=== PATIENT | male | born 1940 | race Caucasian/White ===

== ENCOUNTER → 2020-09-04 | Outpatient (CLI) | payer MEDICARE, MEDICAID | END | disposition home or self-care (01) | LOC: RAD 11:45 | PROVIDERS: ATTEND Internal Medicine Cardiovascular Disease | DX: I65.23 Occlusion and stenosis of bilateral carotid arteries (principal); I08.0 Rheumatic disorders of both mitral and aortic valves; I70.203 Unspecified atherosclerosis of native arteries of extremities, bilateral legs; I48.91 Unspecified atrial fibrillation; I95.9 Hypotension, unspecified; J90 Pleural effusion, not elsewhere classified; R59.0 Localized enlarged lymph nodes; J43.9 Emphysema, unspecified; I70.0 Atherosclerosis of aorta | CPT/HCPCS: 71250; 74176; 93880 ==

== ENCOUNTER 2020-09-22 14:15 | Inpatient (IN) | payer MEDICARE, MEDICAID ==
[~2020-09-22] VITALS: Ht 188 cm; Wt 145.0 kg
[~2020-09-22 14:15] MED LIST: ALLO100T64 PO; APIX2.5T PO; CILO100T PO; FURO40TA6 PO; GABA-827 PO; LATA2.5D2 TP; LOSA25TA2 PO; METO25TA91 PO; ROSU5TAB PO; SPIR25TA5 PO
--- NOTE | 2020-09-22 14:28 | NUR ---
PA notified of sepsis triggers in triage.
[2020-09-22 14:49] LABS: BASOPHILS % (AUTO) 1 % (0-1); EOSINOPHILS % (AUTO) 2 % (1-7); LYMPHOCYTES % (AUTO) 15 % (22-44); MEAN CORPUSCULAR HEMOGLOBIN 36.3 pg (27.5-34.5); MEAN CORPUSCULAR HGB CONC 34.5 g/dL (33.2-36.2); MEAN PLATELET VOLUME 8.5 fL (7.4-10.4); MONOCYTES % (AUTO) 6 % (2-9); NEUTROPHILS % (AUTO) 76 % (42-75); PLATELET COUNT 177 x10^3/uL (130-400); RED BLOOD COUNT 2.83 x10^6/uL (4.38-5.82); RED CELL DISTRIBUTION WIDTH 17.5 % (9.4-14.8)
[2020-09-22 14:55] LABS: ALBUMIN 3.4 g/dL (3.4-5.0); ANION GAP 11 mmol/L (5-15); CALCIUM 9.4 mg/dL (8.5-10.1); CHLORIDE 106 mmol/L (98-107)
[2020-09-22 14:58] LABS: ALANINE AMINOTRANSFERASE 16 U/L (12-78); ALKALINE PHOSPHATASE 53 U/L (45-117); BILIRUBIN,TOTAL 3.1 mg/dL (0.2-1.0)
[2020-09-22 15:28] LABS: INTERNATIONAL NORMALIZED RATIO 1.07 (0.93-1.1); PROTHROMBIN TIME 11.4 Seconds (9.6-11.5)
[2020-09-22] MEDS ORDERED: PANTOPRAZOLE 80 MG in SODIUM CHLORIDE 0.9% 50 ML IVPB ONE (15:30)
[2020-09-22] MEDS ORDERED: PANTOPRAZOLE 80 MG in SODIUM CHLORIDE 0.9% 100 ML IV SCH (16:00)
[2020-09-22] MEDS ORDERED: OMNIPAQUE 350 MG/ML, 150 ML BOTTLE ONE (16:17)
--- NOTE | 2020-09-22 16:20 | NUR ---
PT ABLE TO PROVIDE A URINE SAMPLE WITH SON ASSIST. URINE WALKED TO LAB
--- NOTE | 2020-09-22 16:31 | NUR ---
REPORT TO KENAN SANFORD
[2020-09-22 16:36] LABS: MICROSCOPIC NOT IND
[2020-09-22 16:56] VITALS: BP 133/73
[2020-09-22 17:00] VITALS: BP 133/73
[2020-09-22] MEDS ORDERED: VANCOMYCIN PER PHARMACY MC PRN (18:30)
[2020-09-22] MEDS ORDERED: PHARMACOKINETIC MONITORING MC PRN (19:00)
[2020-09-22] MEDS ORDERED: ONDANSETRON 2MG/ML, 2ML IVPush PRN (19:00)
[2020-09-22] MEDS ORDERED: ONDANSETRON ODT 4 MG PO PRN (19:00)
[2020-09-22] MEDS ORDERED: POLYETHYLENE GLYCOL 17 GM PACKET PO PRN (19:00)
[2020-09-22 19:10] VITALS: BP 153/82
[2020-09-22] MEDS ORDERED: CEFTRIAXONE 2 GM in DEXTROSE 5% 50 ML IVPB SCH (19:30)
[2020-09-22 20:00] VITALS: BP 153/82
[2020-09-22] MEDS ORDERED: VANCOMYCIN 2,500 MG in SODIUM CHLORIDE 0.9% 500 ML IV ONE (20:00)
[2020-09-22] MEDS: LATANOPROST OPHTH 0.005%, 2.5ML HOMEOPHTH SCH (21:00)
[2020-09-22] MEDS: ATORVASTATIN 20 MG TABLET PO SCH (21:23)
[2020-09-22] MEDS: METOPROLOL SUCCINATE 25 MG TAB.ER.24H PO SCH (21:23)
[2020-09-22] MEDS: CILOSTAZOL 100 MG TABLET PO SCH (21:23)
[2020-09-22 22:04] VITALS: BP 133/74
[2020-09-22] MEDS: MELATONIN 5 MG TABLET PO PRN (22:29)
[2020-09-22] MEDS: ACETAMINOPHEN 325 MG TABLET PO PRN (22:29)
[2020-09-23] VITALS (11 sets, daily range): BP systolic 98–150; BP diastolic 54–85
[2020-09-23] MEDS: ACETAMINOPHEN 325 MG TABLET PO PRN ×2 (04:09→16:13)
[2020-09-23 05:10] LABS: BASOPHILS % (AUTO) 1 % (0-1); EOSINOPHILS % (AUTO) 3 % (1-7); LYMPHOCYTES % (AUTO) 12 % (22-44); MEAN CORPUSCULAR HEMOGLOBIN 36.7 pg (27.5-34.5); MEAN CORPUSCULAR HGB CONC 34.9 g/dL (33.2-36.2); MEAN PLATELET VOLUME 8.5 fL (7.4-10.4); MONOCYTES % (AUTO) 7 % (2-9); NEUTROPHILS % (AUTO) 77 % (42-75); PLATELET COUNT 158 x10^3/uL (130-400); RED BLOOD COUNT 2.53 x10^6/uL (4.38-5.82); RED CELL DISTRIBUTION WIDTH 17.3 % (9.4-14.8)
[2020-09-23 05:18] LABS: ANION GAP 8 mmol/L (5-15); CALCIUM 8.9 mg/dL (8.5-10.1); CHLORIDE 109 mmol/L (98-107); CREATININE 1.21 mg/dL (0.7-1.3)
[2020-09-23] MEDS: ALLOPURINOL 100 MG TABLET PO SCH (09:00)
[2020-09-23] MEDS: CILOSTAZOL 100 MG TABLET PO SCH ×2 (09:00→20:53)
[2020-09-23] MEDS: SENNA/DOCUSATE TABLET PO SCH (09:00)
[2020-09-23] MEDS: METOPROLOL SUCCINATE 25 MG TAB.ER.24H PO SCH ×2 (09:00→20:54)
[2020-09-23 10:53] LABS: BILIRUBIN, DIRECT 0.6 mg/dL (0.1-0.2)
[2020-09-23 10:54] LABS: BILIRUBIN,INDIRECT 2.3 mg/dL (0.0-2.0); BILIRUBIN,TOTAL 2.9 mg/dL (0.2-1.0)
[2020-09-23] MEDS: ATORVASTATIN 20 MG TABLET PO SCH (20:53)
[2020-09-23] MEDS: MELATONIN 5 MG TABLET PO PRN (20:54)
[2020-09-23] MEDS: LATANOPROST OPHTH 0.005%, 2.5ML HOMEOPHTH SCH (20:54)
[2020-09-23] MEDS ORDERED: VANCOMYCIN 2,000 MG in SODIUM CHLORIDE 0.9% 500 ML IV SCH (21:30)
[2020-09-23] MEDS ORDERED: LATANOPROST OPHTH 0.005%, 2.5ML HOMEOPHTH SCH (21:51)
[2020-09-23] MEDS ORDERED: LATANOPROST OPHTH 0.005%, 2.5ML OP SCH (21:52)
[2020-09-24 01:52] VITALS: BP 156/87
[2020-09-24] MEDS: ACETAMINOPHEN 325 MG TABLET PO PRN ×2 (02:26→09:51)
[2020-09-24] MEDS ORDERED: GABAPENTIN 100 MG CAPSULE PO ONE (02:30)
[2020-09-24 06:12] LABS: CHOL/HDL RATIO 2.6; LDL/HDL RATIO 1.2 (0.5-3.0)
[2020-09-24 08:02] VITALS: BP 105/62
[2020-09-24] MEDS: SENNA/DOCUSATE TABLET PO SCH (09:00)
[2020-09-24] MEDS ORDERED: APIXABAN 2.5 MG TABLET PO SCH (09:00)
[2020-09-24] MEDS ORDERED: APIXABAN 5 MG TABLET ONE (09:51)
[2020-09-24] MEDS: ALLOPURINOL 100 MG TABLET PO SCH (09:51)
[2020-09-24] MEDS: METOPROLOL SUCCINATE 25 MG TAB.ER.24H PO SCH (09:52)
[2020-09-24] MEDS: CILOSTAZOL 100 MG TABLET PO SCH (09:52)
[2020-09-24 14:04] VITALS: BP 146/77
== END 2020-09-24 16:50 | disposition home health service (06) | DRG 64 ==
LOC: ED 15:28 → EDIP 15:45 → 4EST 16:46
PROVIDERS: ADMIT Internal Medicine; ATTEND Internal Medicine
DX: I63.40 Cerebral infarction due to embolism of unspecified cerebral artery (principal); G92 Toxic encephalopathy; K66.1 Hemoperitoneum; I48.20 Chronic atrial fibrillation, unspecified; D62 Acute posthemorrhagic anemia; I47.2 Ventricular tachycardia; I48.92 Unspecified atrial flutter; Z68.41 Body mass index [BMI] 40.0-44.9, adult; E86.0 Dehydration; I50.9 Heart failure, unspecified; I73.9 Peripheral vascular disease, unspecified; Z79.01 Long term (current) use of anticoagulants; Z85.46 Personal history of malignant neoplasm of prostate; Z87.891 Personal history of nicotine dependence; Z89.421 Acquired absence of other right toe(s); Z95.2 Presence of prosthetic heart valve; Z96.641 Presence of right artificial hip joint; Z79.899 Other long term (current) drug therapy
CPT/HCPCS: 36415; 70450; 70551; 71045; 74177; 80048; 80053; 80061; 81003; 82140; 82247; 82248; 83605; 85018; 85025; 85610; 86850; 86900; 87040; 93005; G0378; J0696; J3370; Q9967; 92523-GN; C9113; J7040

== ENCOUNTER → 2020-12-03 | Outpatient (CLI) | payer MEDICARE, MEDICAID | END | disposition home or self-care (01) | LOC: CVU 12:54 | PROVIDERS: ATTEND Internal Medicine Cardiovascular Disease | DX: Z01.810 Encounter for preprocedural cardiovascular examination (principal); I65.29 Occlusion and stenosis of unspecified carotid artery; I11.9 Hypertensive heart disease without heart failure; Z87.891 Personal history of nicotine dependence; Z95.2 Presence of prosthetic heart valve | CPT/HCPCS: 93306 ==